=== PATIENT | female | born 1995 | race Caucasian/White ===

== ENCOUNTER 2016-05-25 10:32 | Emergency (ER) | payer OTHER ==
[2016-05-25 11:47] LABS: BASO % 0.4 % (0.0-1.0); EOS % 1.2 % (0.0-3.0); LYMPH % 36.3 % (24.0-44.0); MEAN CORPUSCULAR HEMOGLOBIN 28.9 pg (27.0-33.0); MEAN CORPUSCULAR HGB CONC 33.5 g/dl (32.0-36.5); MEAN CORPUSCULAR VOLUME 86.3 fl (80.0-96.0); MONO % 5.3 % (0.0-5.0); NEUTROPHILS % 54.1 % (36.0-66.0); PLATELET COUNT, AUTOMATED 245 k/mm3 (150-450); RED CELL DISTRIBUTION WIDTH 12.5 % (11.5-14.5); WHITE BLOOD COUNT 6.5 K/mm3 (4.0-10.0)
[2016-05-25 11:48] LABS: DIFF SLIDE NUMBER 201; EOS # 0.1 K/mm3 (0.0-0.50); LARGE UNSTAINED CELL # 0.2 K/mm3 (0.0-0.4); LARGE UNSTAINED CELL % 2.7 % (0.0-4.0); LYMPH # 2.4 K/mm3 (1.5-6.5); MONO # 0.3 K/mm3 (0.0-0.8); NEUTROPHILS # 3.5 K/mm3 (1.8-7.7)
[2016-05-25 12:07] LABS: ANION GAP 9 MEQ/L (8-16); BLOOD UREA NITROGEN 7 MG/DL (7-18); CALCIUM LEVEL 8.4 MG/DL (8.5-10.1); CARBON DIOXIDE LEVEL 23 MEQ/L (21-32); CHLORIDE LEVEL 109 MEQ/L (98-107); CREATININE FOR GFR 0.65 MG/DL (0.55-1.02); GLOMERULAR FILTRATION RATE > 60.0 (>60); GLUCOSE, FASTING 106 MG/DL (70-105); HCG, SERUM QUANTITATIVE < 1.0 MIU/ML; POTASSIUM SERUM 3.6 MEQ/L (3.5-5.1); SODIUM LEVEL 141 MEQ/L (136-145)
--- NOTE | 2016-05-25 13:47 | EDDOCDS ---
Physician Documentation [facility] Name: Taylor Gomez Age: 20 yrs Sex: Female : 1995 Arrival Date: 05/25/2016 Time: 10:32 Bed 1 Private MD: Disposition: 05/25/16 13:22 Discharged to Home/Self Care. Impression: Constipation. - Condition is Stable. - Discharge Instructions: Constipation, Adult, [id number]. - Medication Reconciliation, Local Pharmacy Hours form. - Follow up: [facility] ; When: Call to arrange an appointment; Reason: Recheck today's complaints, Continuance of care. - Problem is new. - Symptoms are unchanged. - Notes: You were evaluated in the emergency department for abdominal pain. An x-ray of your abdomen shows stool in your colon. Recommend taking Miralax or Dulcolax over the counter at the recommended dose to relieve your symptoms. Please schedule an appointment with the [facility] medical education clinic at your soonest convenience to discuss today's complaints. Historical: - Allergies: no known allergies; - Home Meds: 1. none - PMHx: Anxiety; Depression; - PSHx: none; - Social history: Smoking status: Patient states was never smoker of tobacco. No barriers to communication noted, The patient speaks fluent Azerbaijani, Speaks appropriately for age. - Family history: Not pertinent. - : The pt / caregiver states he / she is not on anticoagulants. Home medication list is obtained from the patient. - Exposure Risk Screening:: None identified. DONOR SERVICES TECHNICIAN: 05/25 10:36 LMP 05/02/2016 srm Vital Signs: 10:39 BP 120 / 56; Pulse 82; Resp 18; Temp 97.6(O); Pulse Ox 99% on R/A; Weight 74.39 kg / lr2 164 lbs (R); Height 5 ft. 4 in. (162.56 cm) (R); 13:28 BP 109 / 68; Pulse 80; Resp 18; Temp 98.4(O); Pulse Ox 99% on R/A; Pain 5/10; mdr 10:39 Body Mass Index 28.15 (74.39 kg, 162.56 cm) lr2 MDM: 11:37 Abdomen, Flat\E\Upright,PA Chest Ordered. EDMS 11:37 Hcg, Serum Quantitative Ordered. EDMS 11:37 UA Ordered. EDMS 11:37 CBC with Diff Ordered. EDMS 11:37 BMP Ordered. EDMS 12:08 BMP Reviewed. jo4 12:08 CBC with Diff Reviewed. jo4 12:08 UA Reviewed. jo4 12:09 Hcg, Serum Quantitative Reviewed. jo4 12:32 [facility] Payment Agreement was scanned into [employer] and attached to record. jp5 12:32 Financial registration complete. jp5 Signatures: [facility]patcher [facility] Filipe Mercado, Lorri Brown RN, RN RN Cristobal Turpin jp5 Mercedes Jose DO DO jo4 The chart was reviewed and I authenticate all verbal orders and agree with the evaluation and treatment provided.Attachments: 12:32 [facility] Payment Agreement jp5 MTDD
--- NOTE | 2016-05-25 13:47 | EDDOCDS ---
Nurse's Notes [facility] Name: Taylor Gomez Age: 20 yrs Sex: Female : 1995 Arrival Date: 05/25/2016 Time: 10:32 Bed 1 Private MD: Diagnosis: Constipation Presentation: 05/25 10:34 Presenting complaint: Patient states: RLQ pain for a week. nausea. no abnormal vaginal srm bleeding. having a hard time going to the bathroom. Risk factors: the patient reports no vaginal bleeding. Adult Sepsis Screening: The patient does not have new or worsening altered mentation. Patient's respiratory rate is less than 22. Systolic blood pressure is greater than 100. Patient has a qSOFA score of 0- Negative Sepsis Screen. Suicide/Homicide risk assessment- the patient denies having any suicidal and/or homicidal ideations and does not present with any other emotional, behavioral or mental health complaints. Transition of care: patient was not received from another setting of care. 10:34 Acuity: ROBERT Level 3 srm 10:34 Method Of Arrival: Ambulance srm 10:36 Care prior to arrival: IV initiated. Saline lock initiated. Glucose check. 130 fsbs . srm 20 g right hand. 10:36 Status: Patient is not a electromedical service engineer or dependent. srm Triage Assessment: 10:38 General: Appears in no apparent distress, Behavior is appropriate for age, cooperative. srm Pain: Pain currently is 7 out of 10 on a pain scale. At worst was 10 out of 10 on a pain scale. HIV screening NA for this visit Offered previously. The patient is triaged at the bedside. See Assessment in Nurses Notes section of ED record. Neurological: No deficits noted. Respiratory: Airway is patent Respiratory effort is even, unlabored, Breath sounds are clear bilaterally. GI: Abdomen is non- distended Bowel sounds present X 4 quads. Abd is soft X 4 quads Abd is tender to palpation in right lower quadrant. Derm: No deficits noted. HIMS CLERK: 10:36 LMP 05/02/2016 srm Historical: - Allergies: no known allergies; - Home Meds: 1. none - PMHx: Anxiety; Depression; - PSHx: none; - Social history: Smoking status: Patient states was never smoker of tobacco. No barriers to communication noted, The patient speaks fluent Swiss, Speaks appropriately for age. - Family history: Not pertinent. - : The pt / caregiver states he / she is not on anticoagulants. Home medication list is obtained from the patient. - Exposure Risk Screening:: None identified. Screenin:53 Screening information is obtained from the patient. Fall risk: No risks identified. [facility] Assistance ADL's: requires no assistance with activities of daily living. Abuse/DV Screen: The patient / caregiver reports he/she is: not in a situation that causes fear, pain or injury. Nutritional screening: No deficits noted. Advance Directives: There is no active DNR order. home support is adequate. Assessment: 10:53 GI: Abdomen is non- distended Bowel sounds present X 4 quads. GI: Reports nausea. Derm: [facility] No deficits noted. 11:53 Reassessment: Patient appears in no apparent distress at this time. ambulates to [facility] bathroom without assist. 13:45 General: Appears in no apparent distress, comfortable, Behavior is cooperative. Pain: bcj Denies pain. GI: Abdomen is flat, non- distended. Derm: Skin is pink, warm & dry. Vital Signs: 10:39 BP 120 / 56; Pulse 82; Resp 18; Temp 97.6(O); Pulse Ox 99% on R/A; Weight 74.39 kg (R); lr2 Height 5 ft. 4 in. (162.56 cm) (R); 13:28 BP 109 / 68; Pulse 80; Resp 18; Temp 98.4(O); Pulse Ox 99% on R/A; Pain 5/10; mdr 10:39 Body Mass Index 28.15 (74.39 kg, 162.56 cm) lr2 Vitals: 10:36 Log In Time N/A - ambulance arrival. [facility] ED Course: 10:33 Patient visited by Smiley Ordoñez PCA. [facility] 10:33 Patient moved to Waiting [facility] 10:34 Lorri Amador, RN is Primary Nurse. [facility] 10:34 Patient moved to 1 jlf 10:36 Triage Initiated [facility] 10:51 Maintain field IV. Dressing intact. Good blood return noted. Site clean & dry. Labs srm drawn. (by ED staff). 10:53 The patient / caregiver is instructed regarding the plan of care and ED course. Patient srm has correct armband on for positive identification. Placed in gown. Bed in low position. Call light in reach. 10:54 Patient visited by Lorri Amador RN. srm 10:59 Mercedes [facility] jo4 10:59 Paulie Andersen MD is Attending Physician. jo4 11:15 Patient visited by Mercedes Jose DO. jo4 11:15 Patient visited by Mercedes Jose DO. jo4 11:53 UA Sent. srm 11:54 Patient visited by Lorri Amador RN. srm 12:32 [facility] Payment Agreement was scanned into [employer] and attached to record. jp5 12:41 Patient visited by Zo Kirby PCA. ct3 13:15 Patient visited by Zo Kirby PCA. ct3 13:22 [facility] Education [facility] is Referral Physician. jo4 13:23 Patient visited by Talha Campbell PCA. mdr 13:28 Patient visited by Talha Campbell PCA. mdr 13:45 No apparent distress. Resting quietly. Awaiting disposition. bcj 13:45 Discontinued lock intact. No procedures done that require assistance. bcj 13:46 Patient visited by Filipe Daniel RN. [facility] Order Results: Lab Order: Hcg, Serum Quantitative; SPEC'M 05/25/16 10:50 Test: HCG, SERUM QUANTITATIVE; Value: < 1.0; Units: MIU/ML; Status: F Test Note: ; GESTATIONAL AGE APPROXIMATE HCG RANGE (MIU/ML) 0.2-1 WEEK 5-50 1-2 WEEKS 50-500 2-3 WEEKS 100-5,000 3-4 WEEKS 500-10,000 4-5 WEEKS 1,000-50,000 5-6 WEEKS 10,000-100,000 6-8 WEEKS 15,000-200,000 2-3 MONTHS 10,000-100,000 NON FEMALES LESS THAN 3.0 Patient samples may contain human heterophilic antibodies that could react with immunoassays to give falsely elevated or depressed results. This assay has been designed to minimize interference from heterophilic antibodies. Elevated hCG levels have also been associated with trophoblastic disease and nontrophoblastic neoplasms. The possibility of having these diseases should be considered before a diagnosis of is made. This test is not intended for use as a surrogate marker for aiding in the diagnosis or monitoring the treatment of cancer patients. Siemens PROTEGO methodology. Lab Order: UA; SPEC'M 05/25/16 11:52 Test: APPEARANCE, URINE; Value: HAZY; Range: CLEAR; Status: F Test: COLOR, URINE; Value: YELLOW; Range: YELLOW; Status: F Test: PH,URINE; Value: 5.0; Range: 5.0-9.0; Units: UNITS; Status: F Test: SPECIFIC GRAVITY URINE AUTO; Value: 1.011; Range: 1.002-1.035; Status: F Test: PROTEIN, URINE AUTO; Value: NEGATIVE; Range: NEGATIVE; Units: mg/dL; Status: F Test: GLUCOSE, URINE (UA) AUTO; Value: NEGATIVE; Range: NEGATIVE; Units: mg/dL; Status: F Test: KETONE, URINE AUTO; Value: NEGATIVE; Range: NEGATIVE; Units: mg/dL; Status: F Test: UROBILINOGEN, URINE AUTO; Value: 0.2; Range: 0.0-2.0; Units: mg/dL; Status: F Test: BILIRUBIN, URINE AUTO; Value: NEGATIVE; Range: NEGATIVE; Status: F Test: NITRITE, URINE AUTO; Value: NEGATIVE; Range: NEGATIVE; Status: F Test: LEUKOCYTE ESTERASE, URINE AUTO; Value: TRACE; Range: NEGATIVE; Abnormal: Above high normal; Status: F Test: BLOOD, URINE BLOOD; Value: NEGATIVE; Range: NEGATIVE; Status: F Test: WBC, URINE AUTO; Value: 0; Range: 0-3; Units: /HPF; Status: F Test: RBC, URINE AUTO; Value: 3; Range: 0-3; Units: /HPF; Status: F Test: BACTERIA, URINE AUTO; Value: 1+; Range: NEGATIVE; Abnormal: Above high normal; Status: F Test: SQUAMOUS EPITHELIAL CELL UR AU; Value: 2; Range: 0-6; Units: /HPF; Status: F Test: MUCUS, URINE; Value: SMALL; Range: NEGATIVE; Status: F Test: HYALINE CAST, URINE AUTO; Value: 0; Range: 0-1; Units: /LPF; Status: F Lab Order: CBC with Diff; SPEC'M 05/25/16 10:50 Test: WHITE BLOOD COUNT; Value: 6.5; Range: 4.0-10.0; Units: K/mm3; Status: F Test: RED BLOOD COUNT; Value: 4.28; Range: 4.00-5.40; Units: M/mm3; Status: F Test: HEMOGLOBIN; Value: 12.4; Range: 12.0-16.0; Units: g/dl; Status: F Test: HEMATOCRIT; Value: 36.9; Range: 36.0-47.0; Units: %; Status: F Test: MEAN CORPUSCULAR VOLUME; Value: 86.3; Range: 80.0-96.0; Units: fl; Status: F Test: MEAN CORPUSCULAR HEMOGLOBIN; Value: 28.9; Range: 27.0-33.0; Units: pg; Status: F Test: MEAN CORPUSCULAR HGB CONC; Value: 33.5; Range: 32.0-36.5; Units: g/dl; Status: F Test: RED CELL DISTRIBUTION WIDTH; Value: 12.5; Range: 11.5-14.5; Units: %; Status: F Test: PLATELET COUNT, AUTOMATED; Value: 245; Range: 150-450; Units: k/mm3; Status: F Test: NEUTROPHILS %; Value: 54.1; Range: 36.0-66.0; Units: %; Status: F Test: LYMPH %; Value: 36.3; Range: 24.0-44.0; Units: %; Status: F Test: MONO %; Value: 5.3; Range: 0.0-5.0; Abnormal: Above high normal; Units: %; Status: F Test: EOS %; Value: 1.2; Range: 0.0-3.0; Units: %; Status: F Test: BASO %; Value: 0.4; Range: 0.0-1.0; Units: %; Status: F Test: LARGE UNSTAINED CELL %; Value: 2.7; Range: 0.0-4.0; Units: %; Status: F Test: NEUTROPHILS #; Value: 3.5; Range: 1.8-7.7; Units: K/mm3; Status: F Test: LYMPH #; Value: 2.4; Range: 1.5-6.5; Units: K/mm3; Status: F Test: MONO #; Value: 0.3; Range: 0.0-0.8; Units: K/mm3; Status: F Test: EOS #; Value: 0.1; Range: 0.0-0.50; Units: K/mm3; Status: F Test: BASO #; Value: 0.0; Range: 0.0-0.2; Units: K/mm3; Status: F Test: LARGE UNSTAINED CELL #; Value: 0.2; Range: 0.0-0.4; Units: K/mm3; Status: F Lab Order: BMP; SPEC'M 05/25/16 10:50 Test: GLUCOSE, FASTING; Value: 106; Range: 70-105; Abnormal: Above high normal; Units: MG/DL; Status: F Test: BLOOD UREA NITROGEN; Value: 7; Range: 7-18; Units: MG/DL; Status: F Test: CREATININE FOR GFR; Value: 0.65; Range: 0.55-1.02; Units: MG/DL; Status: F Test: GLOMERULAR FILTRATION RATE; Value: > 60.0; Range: >60; Status: F Test: SODIUM LEVEL; Value: 141; Range: 136-145; Units: MEQ/L; Status: F Test: POTASSIUM SERUM; Value: 3.6; Range: 3.5-5.1; Units: MEQ/L; Status: F Test: CHLORIDE LEVEL; Value: 109; Range: 98-107; Abnormal: Above high normal; Units: MEQ/L; Status: F Test: CARBON DIOXIDE LEVEL; Value: 23; Range: 21-32; Units: MEQ/L; Status: F Test: ANION GAP; Value: 9; Range: 8-16; Units: MEQ/L; Status: F Test: CALCIUM LEVEL; Value: 8.4; Range: 8.5-10.1; Abnormal: Below low normal; Units: MG/DL; Status: F Test Note: ; Units are mL/min/1.73 m2 Chronic Kidney Disease Staging per NKF: Stage I & II GFR >=60 Normal to Mildly Decreased Stage III GFR 30-59 Moderately Decreased Stage IV GFR 15-29 Severely Decreased Stage V GFR <15 Very Little GFR Left ESRD GFR <15 on LOG LOADER HELPER Outcome: 13:22 Discharge ordered by Provider. jo4 13:45 Discharge Assessment: patient administered narcotics - no. The following High Risk [facility] Discharge criteria are identified: None. Discharged to home ambulatory. Condition: stable. Discharge instructions given to patient, Instructed on discharge instructions, follow up and referral plans. medication usage. No special radiology studies were completed. Property :Personal belongings accompany Pt. 13:46 Patient left the ED. [facility] Signatures: Filipe Daniel RN RN Lorri Tejeda RN Zo Davalos, NURSE OFFICE NURSE OFFICE ct3 Smiley Ordoñez, NURSE OFFICE NURSE OFFICE jlf Cristobal Perales jp5 Talha Campbell, NURSE OFFICE NURSE OFFICE mdr Mercedes Jose DO DO jo4 Krysten Toney lr2 Corrections: (The following items were deleted from the chart) 10:39 10:36 LMP 04/27/2016 ana perez MTDD
--- NOTE | 2016-05-25 14:21 | REP ---
ABDOMINAL SERIES: THREE VIEWS. HISTORY: Abdominal pain. FINDINGS: Upright chest radiograph is normal. Comparison chest x-ray is from January 12, 2014. There is no evidence of infiltrate or free subdiaphragmatic air. Supine and erect views of the abdomen demonstrate an unremarkable bowel gas pattern. There is air and stool in a nondistended colon. No large or small bowel dilation is seen. Flank stripes are intact. Psoas margins are obscured. No mass, organomegaly, or pathologic calcifications seen. IMPRESSION: Negative abdominal series. Signed by Milton Armendariz MD 05/25/2016 03:20 P
--- NOTE | 2016-05-27 14:47 | EDDOCDS ---
Physician Documentation [facility] Name: Taylor Gomez Age: 20 yrs Sex: Female : 1995 Arrival Date: 05/25/2016 Time: 10:32 Bed 1 Private MD: Disposition: 05/25 13:54 I have independently interviewed and examined the patient, and I agree with the pc investigation, diagnosis and treatment plan as documented by the Resident. Disposition: 05/25/16 13:22 Discharged to Home/Self Care. Impression: Constipation. - Condition is Stable. - Discharge Instructions: Constipation, Adult, [id number]. - Medication Reconciliation, Local Pharmacy Hours form. - Follow up: [facility] ; When: Call to arrange an appointment; Reason: Recheck today's complaints, Continuance of care. - Problem is new. - Symptoms are unchanged. - Notes: You were evaluated in the emergency department for abdominal pain. An x-ray of your abdomen shows stool in your colon. Recommend taking Miralax or Dulcolax over the counter at the recommended dose to relieve your symptoms. Please schedule an appointment with the graduate medical education clinic at your soonest convenience to discuss today's complaints. Historical: - Allergies: no known allergies; - Home Meds: 1. none - PMHx: Anxiety; Depression; - PSHx: none; - Social history: Smoking status: Patient states was never smoker of tobacco. No barriers to communication noted, The patient speaks fluent Malaysian, Speaks appropriately for age. - Family history: Not pertinent. - : The pt / caregiver states he / she is not on anticoagulants. Home medication list is obtained from the patient. - Exposure Risk Screening:: None identified. TRADING SPECIALIST: 10:36 LMP 05/02/2016 srm Vital Signs: 10:39 BP 120 / 56; Pulse 82; Resp 18; Temp 97.6(O); Pulse Ox 99% on R/A; Weight 74.39 kg / lr2 164 lbs (R); Height 5 ft. 4 in. (162.56 cm) (R); 13:28 BP 109 / 68; Pulse 80; Resp 18; Temp 98.4(O); Pulse Ox 99% on R/A; Pain 5/10; mdr 10:39 Body Mass Index 28.15 (74.39 kg, 162.56 cm) lr2 MDM: 11:37 Abdomen, Flat\E\Upright,PA Chest Ordered. EDMS 11:37 Hcg, Serum Quantitative Ordered. EDMS 11:37 UA Ordered. EDMS 11:37 CBC with Diff Ordered. EDMS 11:37 BMP Ordered. EDMS 12:08 BMP Reviewed. jo4 12:08 CBC with Diff Reviewed. jo4 12:08 UA Reviewed. jo4 12:09 Hcg, Serum Quantitative Reviewed. jo4 12:32 [facility] Payment Agreement was scanned into [employer] and attached to record. jp5 12:32 Financial registration complete. jp5 14:41 T-Sheet-- Draft Copy was scanned into [employer] and attached to record. gb 05/26 13:19 PCR was scanned into [employer] and attached to record. gb Signatures: Dispatcher [employer] EDPaulie Mackey MD MD pc Johnson, Bruce, RN RN Lorri Tejeda, RN RN Stacie Tobias, Reg Reg Cristobal Ruiz jp5 Mercedes Jose DO DO jo4 The chart was reviewed and I authenticate all verbal orders and agree with the evaluation and treatment provided.Attachments: 05/25 12:32 [facility] Payment Agreement jp5 14:41 T-Sheet-- Draft Copy gb Chart Complete MTDD
--- NOTE | 2016-05-27 14:47 | EDDOCDS ---
Nurse's Notes [facility] Name: Taylor Gomez Age: 20 yrs Sex: Female : 1995 Arrival Date: 05/25/2016 Time: 10:32 Bed 1 Private MD: Diagnosis: Constipation Presentation: 05/25 10:34 Presenting complaint: Patient states: RLQ pain for a week. nausea. no abnormal vaginal srm bleeding. having a hard time going to the bathroom. Risk factors: the patient reports no vaginal bleeding. Adult Sepsis Screening: The patient does not have new or worsening altered mentation. Patient's respiratory rate is less than 22. Systolic blood pressure is greater than 100. Patient has a qSOFA score of 0- Negative Sepsis Screen. Suicide/Homicide risk assessment- the patient denies having any suicidal and/or homicidal ideations and does not present with any other emotional, behavioral or mental health complaints. Transition of care: patient was not received from another setting of care. 10:34 Acuity: ROBERT Level 3 srm 10:34 Method Of Arrival: Ambulance srm 10:36 Care prior to arrival: IV initiated. Saline lock initiated. Glucose check. 130 fsbs . srm 20 g right hand. 10:36 Status: Patient is not a media services specialist or dependent. srm Triage Assessment: 10:38 General: Appears in no apparent distress, Behavior is appropriate for age, cooperative. srm Pain: Pain currently is 7 out of 10 on a pain scale. At worst was 10 out of 10 on a pain scale. HIV screening NA for this visit Offered previously. The patient is triaged at the bedside. See Assessment in Nurses Notes section of ED record. Neurological: No deficits noted. Respiratory: Airway is patent Respiratory effort is even, unlabored, Breath sounds are clear bilaterally. GI: Abdomen is non- distended Bowel sounds present X 4 quads. Abd is soft X 4 quads Abd is tender to palpation in right lower quadrant. Derm: No deficits noted. 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 none - PMHx: Anxiety; Depression; - PSHx: none; - Social history: Smoking status: Patient states was never smoker of tobacco. No barriers to communication noted, The patient speaks fluent Ugandan, Speaks appropriately for age. - Family history: Not pertinent. - : The pt / caregiver states he / she is not on anticoagulants. Home medication list is obtained from the patient. - Exposure Risk Screening:: None identified. Screenin:53 Screening information is obtained from the patient. Fall risk: No risks identified. [facility] Assistance ADL's: requires no assistance with activities of daily living. Abuse/DV Screen: The patient / caregiver reports he/she is: not in a situation that causes fear, pain or injury. Nutritional screening: No deficits noted. Advance Directives: There is no active DNR order. home support is adequate. Assessment: 10:53 GI: Abdomen is non- distended Bowel sounds present X 4 quads. GI: Reports nausea. Derm: [facility] No deficits noted. 11:53 Reassessment: Patient appears in no apparent distress at this time. ambulates to [facility] bathroom without assist. 13:45 General: Appears in no apparent distress, comfortable, Behavior is cooperative. Pain: bcj Denies pain. GI: Abdomen is flat, non- distended. Derm: Skin is pink, warm & dry. Vital Signs: 10:39 BP 120 / 56; Pulse 82; Resp 18; Temp 97.6(O); Pulse Ox 99% on R/A; Weight 74.39 kg (R); lr2 Height 5 ft. 4 in. (162.56 cm) (R); 13:28 BP 109 / 68; Pulse 80; Resp 18; Temp 98.4(O); Pulse Ox 99% on R/A; Pain 5/10; mdr 10:39 Body Mass Index 28.15 (74.39 kg, 162.56 cm) lr2 Vitals: 10:36 Log In Time N/A - ambulance arrival. [facility] ED Course: 10:33 Patient visited by Smiley Ordoñez PCA. [facility] 10:33 Patient moved to Waiting [facility] 10:34 Lorri Amador, RN is Primary Nurse. [facility] 10:34 Patient moved to 1 jlf 10:36 Triage Initiated [facility] 10:51 Maintain field IV. Dressing intact. Good blood return noted. Site clean & dry. Labs srm drawn. (by ED staff). 10:53 The patient / caregiver is instructed regarding the plan of care and ED course. Patient srm has correct armband on for positive identification. Placed in gown. Bed in low position. Call light in reach. 10:54 Patient visited by Lorri Amador, YOLANDA. srm 10:59 Mercedes Jose [facility]. jo4 10:59 Paulie Andersen MD is Attending Physician. jo4 11:15 Patient visited by Mercedes Jose DO. jo4 11:15 Patient visited by Mercedes Jose DO. jo4 11:53 UA Sent. srm 11:54 Patient visited by Lorri Amador RN. srm 12:32 [facility] Payment Agreement was scanned into [employer] and attached to record. jp5 12:41 Patient visited by Zo Kirby PCA. ct3 13:15 Patient visited by Zo Kirby PCA. ct3 13:22 [facility] is Referral Physician. jo4 13:23 Patient visited by Talha Campbell PCA. mdr 13:28 Patient visited by Talha Campbell PCA. mdr 13:45 No apparent distress. Resting quietly. Awaiting disposition. bcj 13:45 Discontinued lock intact. No procedures done that require assistance. bcj 13:46 Patient visited by Filipe Daniel RN. bcj 14:41 T-Sheet-- Draft Copy was scanned into [employer] and attached to record. gb 14:55 Abdomen, Flat\E\Upright,PA Chest Returned. EDMS 05/26 13:19 PCR was scanned into [employer] and attached to record. gb Order Results: Lab Order: Hcg, Serum Quantitative; SPEC'M 05/25/16 10:50 Test: HCG, SERUM QUANTITATIVE; Value: < 1.0; Units: MIU/ML; Status: F Test Note: ; GESTATIONAL AGE APPROXIMATE HCG RANGE (MIU/ML) 0.2-1 WEEK 5-50 1-2 WEEKS 50-500 2-3 WEEKS 100-5,000 3-4 WEEKS 500-10,000 4-5 WEEKS 1,000-50,000 5-6 WEEKS 10,000-100,000 6-8 WEEKS 15,000-200,000 2-3 MONTHS 10,000-100,000 NON FEMALES LESS THAN 3.0 Patient samples may contain human heterophilic antibodies that could react with immunoassays to give falsely elevated or depressed results. This assay has been designed to minimize interference from heterophilic antibodies. Elevated hCG levels have also been associated with trophoblastic disease and nontrophoblastic neoplasms. The possibility of having these diseases should be considered before a diagnosis of is made. This test is not intended for use as a surrogate marker for aiding in the diagnosis or monitoring the treatment of cancer patients. [employer] methodology. Lab Order: UA; SPEC'M 05/25/16 11:52 Test: APPEARANCE, URINE; Value: HAZY; Range: CLEAR; Status: F Test: COLOR, URINE; Value: YELLOW; Range: YELLOW; Status: F Test: PH,URINE; Value: 5.0; Range: 5.0-9.0; Units: UNITS; Status: F Test: SPECIFIC GRAVITY URINE AUTO; Value: 1.011; Range: 1.002-1.035; Status: F Test: PROTEIN, URINE AUTO; Value: NEGATIVE; Range: NEGATIVE; Units: mg/dL; Status: F Test: GLUCOSE, URINE (UA) AUTO; Value: NEGATIVE; Range: NEGATIVE; Units: mg/dL; Status: F Test: KETONE, URINE AUTO; Value: NEGATIVE; Range: NEGATIVE; Units: mg/dL; Status: F Test: UROBILINOGEN, URINE AUTO; Value: 0.2; Range: 0.0-2.0; Units: mg/dL; Status: F Test: BILIRUBIN, URINE AUTO; Value: NEGATIVE; Range: NEGATIVE; Status: F Test: NITRITE, URINE AUTO; Value: NEGATIVE; Range: NEGATIVE; Status: F Test: LEUKOCYTE ESTERASE, URINE AUTO; Value: TRACE; Range: NEGATIVE; Abnormal: Above high normal; Status: F Test: BLOOD, URINE BLOOD; Value: NEGATIVE; Range: NEGATIVE; Status: F Test: WBC, URINE AUTO; Value: 0; Range: 0-3; Units: /HPF; Status: F Test: RBC, URINE AUTO; Value: 3; Range: 0-3; Units: /HPF; Status: F Test: BACTERIA, URINE AUTO; Value: 1+; Range: NEGATIVE; Abnormal: Above high normal; Status: F Test: SQUAMOUS EPITHELIAL CELL UR AU; Value: 2; Range: 0-6; Units: /HPF; Status: F Test: MUCUS, URINE; Value: SMALL; Range: NEGATIVE; Status: F Test: HYALINE CAST, URINE AUTO; Value: 0; Range: 0-1; Units: /LPF; Status: F Lab Order: CBC with Diff; SPEC'M 05/25/16 10:50 Test: WHITE BLOOD COUNT; Value: 6.5; Range: 4.0-10.0; Units: K/mm3; Status: F Test: RED BLOOD COUNT; Value: 4.28; Range: 4.00-5.40; Units: M/mm3; Status: F Test: HEMOGLOBIN; Value: 12.4; Range: 12.0-16.0; Units: g/dl; Status: F Test: HEMATOCRIT; Value: 36.9; Range: 36.0-47.0; Units: %; Status: F Test: MEAN CORPUSCULAR VOLUME; Value: 86.3; Range: 80.0-96.0; Units: fl; Status: F Test: MEAN CORPUSCULAR HEMOGLOBIN; Value: 28.9; Range: 27.0-33.0; Units: pg; Status: F Test: MEAN CORPUSCULAR HGB CONC; Value: 33.5; Range: 32.0-36.5; Units: g/dl; Status: F Test: RED CELL DISTRIBUTION WIDTH; Value: 12.5; Range: 11.5-14.5; Units: %; Status: F Test: PLATELET COUNT, AUTOMATED; Value: 245; Range: 150-450; Units: k/mm3; Status: F Test: NEUTROPHILS %; Value: 54.1; Range: 36.0-66.0; Units: %; Status: F Test: LYMPH %; Value: 36.3; Range: 24.0-44.0; Units: %; Status: F Test: MONO %; Value: 5.3; Range: 0.0-5.0; Abnormal: Above high normal; Units: %; Status: F Test: EOS %; Value: 1.2; Range: 0.0-3.0; Units: %; Status: F Test: BASO %; Value: 0.4; Range: 0.0-1.0; Units: %; Status: F Test: LARGE UNSTAINED CELL %; Value: 2.7; Range: 0.0-4.0; Units: %; Status: F Test: NEUTROPHILS #; Value: 3.5; Range: 1.8-7.7; Units: K/mm3; Status: F Test: LYMPH #; Value: 2.4; Range: 1.5-6.5; Units: K/mm3; Status: F Test: MONO #; Value: 0.3; Range: 0.0-0.8; Units: K/mm3; Status: F Test: EOS #; Value: 0.1; Range: 0.0-0.50; Units: K/mm3; Status: F Test: BASO #; Value: 0.0; Range: 0.0-0.2; Units: K/mm3; Status: F Test: LARGE UNSTAINED CELL #; Value: 0.2; Range: 0.0-0.4; Units: K/mm3; Status: F Lab Order: [facility]; SPEC'M 05/25/16 10:50 Test: GLUCOSE, FASTING; Value: 106; Range: 70-105; Abnormal: Above high normal; Units: MG/DL; Status: F Test: BLOOD UREA NITROGEN; Value: 7; Range: 7-18; Units: MG/DL; Status: F Test: CREATININE FOR GFR; Value: 0.65; Range: 0.55-1.02; Units: MG/DL; Status: F Test: GLOMERULAR FILTRATION RATE; Value: > 60.0; Range: >60; Status: F Test: SODIUM LEVEL; Value: 141; Range: 136-145; Units: MEQ/L; Status: F Test: POTASSIUM SERUM; Value: 3.6; Range: 3.5-5.1; Units: MEQ/L; Status: F Test: CHLORIDE LEVEL; Value: 109; Range: 98-107; Abnormal: Above high normal; Units: MEQ/L; Status: F Test: CARBON DIOXIDE LEVEL; Value: 23; Range: 21-32; Units: MEQ/L; Status: F Test: ANION GAP; Value: 9; Range: 8-16; Units: MEQ/L; Status: F Test: CALCIUM LEVEL; Value: 8.4; Range: 8.5-10.1; Abnormal: Below low normal; Units: MG/DL; Status: F Test Note: ; Units are mL/min/1.73 m2 Chronic Kidney Disease Staging per NKF: Stage I & II GFR >=60 Normal to Mildly Decreased Stage III GFR 30-59 Moderately Decreased Stage IV GFR 15-29 Severely Decreased Stage V GFR <15 Very Little GFR Left ESRD GFR <15 on SENIOR CLINICAL PROJECT MANAGER Radiology Order: Abdomen, Flat\E\Upright,PA Chest Test: Abdomen, Flat\E\Upright,PA Chest REASON FOR EXAMINATION: Abdomen Pain; ABDOMINAL SERIES: THREE VIEWS.; ; HISTORY: Abdominal pain.; ; FINDINGS: Upright chest radiograph is normal. Comparison chest x-ray is from; January 12, 2014. There is no evidence of infiltrate or free subdiaphragmatic; air.; ; Supine and erect views of the abdomen demonstrate an unremarkable bowel gas; pattern. There is air and stool in a nondistended colon. No large or small; bowel dilation is seen. Flank stripes are intact. Psoas margins are obscured.; No mass, organomegaly, or pathologic calcifications seen.; ; IMPRESSION:; ; Negative abdominal series.; ; ; Signed by; Milton Armendariz MD 05/25/2016 03:20 P; Outcome: 05/25 13:22 Discharge ordered by Provider. jo4 13:45 Discharge Assessment: patient administered narcotics - no. The following High Risk [facility] Discharge criteria are identified: None. Discharged to home ambulatory. Condition: stable. Discharge instructions given to patient, Instructed on discharge instructions, follow up and referral plans. medication usage. No special radiology studies were completed. Property :Personal belongings accompany Pt. 13:46 Patient left the ED. j Signatures: Dispatcher [employer] EDFilipe Kern RN RN bcj Michelson, Staci, RN RN srm Barnhardt, Gloria, Reg Reg gb Zo Kirby, FIELD EVIDENCE TECHNICIAN FIELD EVIDENCE TECHNICIAN ct3 Smiley Ordoñez, FIELD EVIDENCE TECHNICIAN FIELD EVIDENCE TECHNICIAN quynhf Cristobal Perales jp5 Talha Campbell, FIELD EVIDENCE TECHNICIAN FIELD EVIDENCE TECHNICIAN mdr Mercedes Jose DO DO jo4 Krysten Toney2 Corrections: (The following items were deleted from the chart) 10:39 10:36 LMP 04/27/2016 ana perez Chart Complete MTDD
--- NOTE | 2016-05-27 14:47 | EDDOCDS ---
Physician Documentation [facility] Name: Taylor Gomez Age: 20 yrs Sex: Female : 1995 Arrival Date: 05/25/2016 Time: 10:32 Bed 1 Private MD: Disposition: 05/25 13:54 I have independently interviewed and examined the patient, and I agree with the pc investigation, diagnosis and treatment plan as documented by the Resident. Disposition: 05/25/16 13:22 Discharged to Home/Self Care. Impression: Constipation. - Condition is Stable. - Discharge Instructions: Constipation, Adult, [id number]. - Medication Reconciliation, Local Pharmacy Hours form. - Follow up: [facility] ; When: Call to arrange an appointment; Reason: Recheck today's complaints, Continuance of care. - Problem is new. - Symptoms are unchanged. - Notes: You were evaluated in the emergency department for abdominal pain. An x-ray of your abdomen shows stool in your colon. Recommend taking Miralax or Dulcolax over the counter at the recommended dose to relieve your symptoms. Please schedule an appointment with the graduate medical education clinic at your soonest convenience to discuss today's complaints. Historical: - Allergies: no known allergies; - Home Meds: 1. none - PMHx: Anxiety; Depression; - PSHx: none; - Social history: Smoking status: Patient states was never smoker of tobacco. No barriers to communication noted, The patient speaks fluent [place], Speaks appropriately for age. - Family history: Not pertinent. - : The pt / caregiver states he / she is not on anticoagulants. Home medication list is obtained from the patient. - Exposure Risk Screening:: None identified. 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 4 in. (162.56 cm) (R); 13:28 BP 109 / 68; Pulse 80; Resp 18; Temp 98.4(O); Pulse Ox 99% on R/A; Pain 5/10; mdr 10:39 Body Mass Index 28.15 (74.39 kg, 162.56 cm) lr2 MDM: 11:37 Abdomen, Flat\E\Upright,PA Chest Ordered. EDMS 11:37 Hcg, Serum Quantitative Ordered. EDMS 11:37 UA Ordered. EDMS 11:37 CBC with Diff Ordered. EDMS 11:37 BMP Ordered. EDMS 12:08 BMP Reviewed. jo4 12:08 CBC with Diff Reviewed. jo4 12:08 UA Reviewed. jo4 12:09 Hcg, Serum Quantitative Reviewed. jo4 12:32 [facility] Payment Agreement was scanned into [employer] and attached to record. jp5 12:32 Financial registration complete. jp5 14:41 T-Sheet-- Draft Copy was scanned into [employer] and attached to record. gb 05/26 13:19 PCR was scanned into [employer] and attached to record. gb Signatures: Dispatcher [employer] EDPaulie Mackey MD MD pc Johnson, Bruce, RN RN Lorri Tejeda, RN RN Stacie Tobias, Reg Reg Cristobal Ruiz jp5 Mercedes Jose DO DO jo4 The chart was reviewed and I authenticate all verbal orders and agree with the evaluation and treatment provided.Attachments: 05/25 12:32 [facility] Payment Agreement jp5 14:41 T-Sheet-- Draft Copy gb Chart Complete MTDD
== END 2016-05-25 13:46 | disposition home or self-care (01) ==
LOC: M ED 10:32
DX: K59.00 Constipation, unspecified (principal); F41.9 Anxiety disorder, unspecified; F32.9 Major depressive disorder, single episode, unspecified

== ENCOUNTER 2016-07-27 15:39 | Emergency (ER) | payer OTHER ==
[~2016-07-27] VITALS: Ht 165.1 cm; Wt 72.6 kg
[2016-07-27] MEDS ORDERED: LEXA1TAB PO (15:58)
--- NOTE | 2016-07-27 17:35 | REP ---
CT of the brain without IV contrast: There are no comparison studies. There is no subdural or epidural hematoma. There is no edema, mass effect or midline shift. Ventricles are normal size and midline. The visualized paranasal sinuses and mastoid air cells are clear. Impression: Essentially negative emergency CT study of the brain. Signed by Zac Lutz MD 07/27/2016 05:27 P
--- NOTE | 2016-07-27 17:37 | REP ---
CT of the cervical spine: There are no comparisons. Axial images are acquired helical scanning in the reformatted sagittal and coronal projections. The skull base, C1-C2 are unremarkable. Vertebral body heights, interspacing alignment are normal. Prevertebral soft tissues are normal. The facets are normally aligned. There are no posterior element fractures. Impression: There is no fracture or listhesis. Signed by Zac Lutz MD 07/27/2016 05:30 P
--- NOTE | 2016-07-27 18:25 | REP ---
LEFT FOREARM, RADIUS, ULNA: HISTORY: Pain after trauma. COMPARISON EXAM: None. FINDINGS: No acute fracture or destructive osseous lesion. Signed by Marcelino Collier DO 07/27/2016 06:48 P
[2016-07-27 18:37] VITALS: BP 121/59
== END 2016-07-27 18:42 | disposition home or self-care (01) ==
LOC: EDBD 15:39 → M ED 18:11
DX: S50.12XA Contusion of left forearm, initial encounter (principal); W10.9XXA Fall (on) (from) unspecified stairs and steps, initial encounter; Y92.89 Other specified places as the place of occurrence of the external cause; Y93.01 Activity, walking, marching and hiking; Y99.8 Other external cause status; F41.9 Anxiety disorder, unspecified; F32.9 Major depressive disorder, single episode, unspecified; Z79.899 Other long term (current) drug therapy

== ENCOUNTER → 2016-08-06 | Emergency (ER) | payer OTHER ==
[~2016-08-06] VITALS: Ht 162.6 cm; Wt 72.6 kg
[~2016-08-06] MED LIST: LEXA1TAB PO
[2016-08-06 09:01] VITALS: BP 113/72
[2016-08-06 09:50] LABS: CONTROL LINE UCG INT CTR LINE PRESENT
== END | disposition home or self-care (01) ==
LOC: M ED 09:35
DX: N30.00 Acute cystitis without hematuria (principal)

== ENCOUNTER 2016-09-13 14:18 | Emergency (ER) | payer OTHER, SELFPAY ==
[~2016-09-13] VITALS: Ht 162.6 cm; Wt 59.0 kg
[2016-09-13 14:19] VITALS: BP 122/85
[2016-09-13] MEDS ORDERED: IBUPROFEN 600 MG TAB PO ONE (14:45)
--- NOTE | 2016-09-13 15:23 | REP ---
Clinical: Right pelvic and adnexal pain. Technique: Transabdominal pelvic ultrasound followed by transvaginal examination for better evaluation of the endometrium and adnexa with color Doppler evaluation of the ovaries. Findings: Bladder is unremarkable and measures 6.0 x 3.1 x 5.9 cm . Normal anteverted uterus measures 8.0 x 3.8 x 5.2 cm . The endometrial complex measures 8 mm thickness and a small amount of endocervical fluid is identified. No discrete uterine or endometrial abnormalities are appreciated. Bilateral ovaries are normal in appearance and vascularity without evidence for torsion. Right ovary measures 4.2 x 2.4 x 3.8 cm ; R I = 0.66 . Left ovary measures 2.7 x 2.3 x 2.8 cm ; R I = 0.53 . Trace free fluid in the pelvis is nonspecific. No adnexal mass lesion or abnormality noted. Impression: 1. Essentially normal pelvic ultrasound. Signed by Amado Echeverria MD 09/13/2016 03:14 P
[2016-09-13 15:44] LABS: CONTROL LINE UCG INT CTR LINE PRESENT
== END 2016-09-13 15:36 | disposition home or self-care (01) ==
LOC: M ED 14:46
DX: R10.2 Pelvic and perineal pain (principal); F32.9 Major depressive disorder, single episode, unspecified; Z79.899 Other long term (current) drug therapy